=== PATIENT | male | born 1995 | race Caucasian/White ===

== ENCOUNTER → 2016-03-22 | Outpatient (CLI) | payer BC ==
[~2016-03-22] MED LIST: DXY100 PO; FLR1 PO; HYD10 PO; LEVO25TA PO; ONDA4TAB65 PO; TRAZ50TA35 PO
[2016-03-22 17:38] LABS: ALT/SGPT 25 U/L (12-78); BLOOD UREA NITROGEN 31 mg/dl (7-18); BUN/CREATININE RATIO 27.7 (10-20); CALCIUM 8.8 mg/dl (8.5-10.1); CARBON DIOXIDE 24 mmol/L (21-32); CHLORIDE 89 mmol/L (98-107); GLUCOSE 79 mg/dl (70-99); POTASSIUM 4.5 mmol/L (3.5-5.1); SODIUM 126 mmol/L (136-145)
[2016-03-22 17:49] LABS: ALB/GLOB RATIO 1.4 (0.9-2); ALKALINE PHOSPHATASE 70 U/L (45-117); AST/SGOT 23 U/L (15-37)
[2016-03-22 18:07] LABS: HEMATOCRIT 41.3 % (42-52); MEAN CELL VOLUME 80.5 fL (80-100); MEAN CORPUSCULAR HGB CONC 39.7 g/dl (32-36); MEAN PLATELET VOLUME 10.7 fL (7.4-10.4); PLATELET COUNT 239 K/uL (130-400); RED BLOOD COUNT 5.13 M/uL (4.7-6.1); WHITE BLOOD COUNT 5.95 K/uL (4.8-10.8)
[2016-03-22 18:15] LABS: BASO % 0.5 %; BASO ABS # 0.03 K/uL (0-0.2); COMPLETE YES; IG% 0.2 %; LYMPH % 38.8 %; LYMPH ABS # 2.31 K/uL (1.2-3.4); MONO % 10.4 %; NEUT % 47.1 %
== END | disposition home or self-care (01) ==
LOC: C.LAB1850 16:49
PROVIDERS: ATTEND Family Medicine
DX: R06.02 Shortness of breath (principal); I95.1 Orthostatic hypotension

== ENCOUNTER 2016-03-27 11:49 | Inpatient (IN) | payer BC ==
[~2016-03-27] VITALS: Ht 190.5 cm; Wt 70.0 kg
[2016-03-27] MEDS ORDERED: ONDANSETRON INJ 2 MG/ML 2 ML VIAL IV STA (12:11)
[2016-03-27] MEDS ORDERED: SODIUM CHLORIDE 0.9% 1000ML 1,000 ML IV STA ×2 (12:11→12:48)
--- NOTE | 2016-03-27 12:21 | EMERGENCY ROOM VISIT NOTE ---
History Report prepared by Barry: Wan Butts Under the Supervision of: Dr. Saud Cagle M.D. First contact with patient: 12:04 Chief Complaint: NAUSEA Stated Complaint: NAUSEA Nursing Triage Summary: Pt presents for eval of nausea/vomiting, decreased appetite, constipation. Last BM was today. Denies abd pain. Dx on Thurs with hypothyroidism, hyponatremia and orthostatic hypotension. History of Present Illness The patient is a 21 year old male who presents to the Emergency Room with complaints of constant nausea and vomiting starting for the past week. The patient states that she is currently in minimal discomfort. The patient states that earlier this week he went to the doctor, and he was diagnosed with a thyroid issue. He states that he was given medication for it. The patient states that he originally went to the doctor because he was having shortness of breath, dizziness, and he was tired and he had a low appetite. He states that he has additionally been having chills. The patient states that he has been drinking water, but he keeps vomiting it up. The patient states that is worse when standing up or moving. The patient denies using drugs, smoking, and drinking alcohol in the past three weeks. Source of History: patient Onset: week ago Position: other (global) Symptom Intensity: minimal Quality: other (nausea and vomiting) Timing: constant Associated Symptoms: + chills Review of Systems See HPI for pertinent positives & negatives. A total of 10 systems reviewed and were otherwise negative. Past Medical & Surgical Medical Problems: (1) No active medical problems Family History FHx: cancer FHx: heart disease Hypertension Social History Smoking Status: Never Smoker Alcohol Use: occasionally Drug Use: none Housing Status: lives alone Occupation Status: [employer] student Current/Historical Medications Scheduled Levothyroxine Sodium (Synthroid), 25 MCG PO DAILY Allergies Coded Allergies: No Known Allergies (Unverified , 03/27/16) Physical Exam Vital Signs Date Time Temp Pulse Resp B/P Pulse Ox O2 Delivery O2 Flow Rate FiO2 03/27/16 12:50 82 18 101/61 99 03/27/16 12:50 81 03/27/16 12:46 100 Room Air 03/27/16 12:46 100 Room Air 03/27/16 12:30 71 18 94/44 100 Room Air 83 89/59 95 81/62 03/27/16 11:55 36.3 109 18 73/55 99 Room Air Physical Exam GENERAL: Patient is a pale appearing well-nourished male HEAD: Normocephalic atraumatic EYES: Ocular movements intact pupils equal and react to light OROPHARYNX mucous membranes are moist no exudates present no erythema or edema present NECK: Supple no nuchal rigidity CHEST: Good equal expansion LUNGS: Clear and equal to auscultation CARDIAC: Normal S1 and S2 ABDOMEN: Soft nontender no guarding BACK: No CVA tenderness EXTREMITIES: No pain upon palpation normal muscle strength in all groups no clubbing cyanosis or edema NEURO: Patient is following commands is answering questions appropriately. Alert and oriented x3 Cranial Nerves 2-12 grossly intact Medical Decision & Procedures Laboratory Results 03/27/16 12:10 Red Blood Count 5.48, Mean Corpuscular Volume 77.6, Mean Corpuscular Hemoglobin 31.4, Mean Corpuscular Hemoglobin Concent 40.5, Mean Platelet Volume 10.1 03/27/16 12:10 Test 03/27/16 12:10 03/27/16 12:20 03/27/16 12:46 White Blood Count 5.82 K/uL (4.8-10.8) Red Blood Count 5.48 M/uL (4.7-6.1) Hemoglobin 17.2 g/dL (14.0-18.0) Hematocrit 42.5 % (42-52) Mean Corpuscular Volume 77.6 fL (80-100) Mean Corpuscular Hemoglobin 31.4 pg (25-34) Mean Corpuscular Hemoglobin Concent 40.5 g/dl (32-36) Platelet Count 304 K/uL (130-400) Mean Platelet Volume 10.1 fL (7.4-10.4) RDW Standard Deviation 31.2 fL (36.4-46.3) RDW Coefficient of Variation 11.1 % (11.5-14.5) Neutrophils % (Manual) 41.5 % Lymphocytes % (Manual) 22.1 % Variant Lymphocytes % (manual) 25.7 % Monocytes % (Manual) 8.0 % Eosinophils % (Manual) 0.9 % Basophils % (Manual) 0.9 % (0-2) Myelocytes % 0.9 % Neutrophils # (Manual) 2.42 K/uL (1.4-6.5) Total Absolute Neutrophils 2.42 K/uL (1.4-6.5) Lymphocytes # (Manual) 1.29 K/uL (1.2-3.4) Absolute Variant Lymphocytes 1.50 K/uL Total Absolute Lymphocytes 2.78 K/uL (1.2-3.4) Monocytes # (Manual) 0.47 K/uL (0.11-0.59) Eosinophils # (Manual) 0.05 K/uL (0-0.5) Basophils # (Manual) 0.05 K/uL (0-0.2) Myelocytes # 0.05 K/uL (0-0) Red Blood Cell Morphology Unremarkable Anion Gap 14.0 mmol/L (3-11) Est Creatinine Clear Calc Drug Dose 95.5 ml/min Estimated GFR () 98.9 Estimated GFR (Non- 85.3 BUN/Creatinine Ratio 24.7 (10-20) Calcium Level 8.8 mg/dl (8.5-10.1) Total Bilirubin 0.9 mg/dl (0.2-1) Direct Bilirubin 0.3 mg/dl (0-0.2) Aspartate Amino Transf (AST/SGOT) 24 U/L (15-37) Alanine Aminotransferase (ALT/SGPT) 29 U/L (12-78) Alkaline Phosphatase 78 U/L (45-117) Total Protein 7.6 gm/dl (6.4-8.2) Albumin 4.4 gm/dl (3.4-5.0) Thyroid Stimulating Hormone (TSH) 9.910 uIu/ml (0.300-4.500) Lyme Disease IgG Antibody POS (NEG) Monoscreen NEG (NEG) Bedside Glucose 109 mg/dl (70-99) Labs reviewed by ED physician. Medications Administered Medications (Trade) Dose Ordered Sig/Destinee Route Start Time Stop Time Status Last Admin Dose Admin Sodium Chloride (Nss 1000ml) 1,000 ml @ 999 mls/hr Q1H1M STAT IV 03/27/16 12:11 03/27/16 13:11 DC 03/27/16 12:29 999 MLS/HR Ondansetron HCl 4 mg 4 mg NOW STAT IV 03/27/16 12:11 03/27/16 12:13 DC 03/27/16 12:45 4 MG Sodium Chloride (Nss 1000ml) 1,000 ml @ 999 mls/hr Q1H1M STAT IV 03/27/16 12:48 03/27/16 13:48 DC 03/27/16 12:50 999 MLS/HR Hydrocortisone Sodium Succinate (Solu-Cortef IV) 100 mg NOW STAT IV 03/27/16 13:11 03/27/16 13:12 DC 03/27/16 13:11 100 MG Ceftriaxone Sodium (Rocephin Inj) 2 gm NOW STAT IV 03/27/16 13:25 03/27/16 13:26 DC 03/27/16 13:32 2 GM ED Course 1211: Zofran Inj 4mg IV, Sodium Chloride 1000 ml @ 999 mls/hr IV 1248: Sodium Chloride 1000 ml @ 999 mls/hr IV 1300: Past medical records reviewed. The patient was evaluated in room A3. A complete history and physical examination was performed. 1311: Solu- Cortef IV 100mg IV 1325: Rocephin Inj 2mg IV Medical Decision Differential diagnosis: Etiologies such as metabolic, infection, hypo/hyperglycemia, electrolyte abnormalities, cardiac sources, intracerebral event, toxicologic, neurologic, as well as others were entertained. This is a 21-year-old male who presents emergency department complaining of generalized weakness along with orthostatic hypotension. The patient was just diagnosed with hypothyroidism along with hyponatremia and orthostatic hypotension in the primary care physician's office. The patient was started on thyroid medication. He arrives again hypotensive to the emergency department and his sodium has fallen even further from 126-118. His potassium was also high at 5. Based on these findings I'm concerned that the patient may have adrenal insufficiency. For these reasons an ACTH level as well as a cortisol level were drawn prior to the patient receiving Solu-Cortef. The patient was given 2 L of fluid in addition to this. Also the patient also has a positive Lyme test. Based on this finding the patient was started on 2 g of Rocephin. I did discuss the case with the hospitalist service who agreed to admit the patient. Patient was in agreement with the treatment plan. Impression Primary Impression: Hyponatremia Additional Impression: Hypotension Critical Care I have personally spent greater than 30 minutes of critical care time in the direct management of this patient. This includes bedside care, interpretation of diagnostic studies, and testing, discussion with consultants, patient, and family members, and other required patient management activities. This 30 minutes is in excess of all separately billable procedures. Scribe Attestation The scribe's documentation has been prepared under my direction and personally reviewed by me in its entirety. I confirm that the note above accurately reflects all work, treatment, procedures, and medical decision making performed by me. Departure Information Dispostion Still a Patient Referrals No Doctor, Assigned (PCP) Patient Instructions My [facility] Problem Qualifiers Additional Impression: Hypotension Hypotension type: orthostatic hypotension Qualified Codes: I95.1 - Orthostatic hypotension
[2016-03-27] MEDS ORDERED: LEVO25TA PO (12:23)
[2016-03-27 12:58] LABS: HEMATOCRIT 42.5 % (42-52); MEAN CELL VOLUME 77.6 fL (80-100); MEAN CORPUSCULAR HEMOGLOBIN 31.4 pg (25-34); MEAN CORPUSCULAR HGB CONC 40.5 g/dl (32-36); MEAN PLATELET VOLUME 10.1 fL (7.4-10.4); PLATELET COUNT 304 K/uL (130-400); RED BLOOD COUNT 5.48 M/uL (4.7-6.1); WHITE BLOOD COUNT 5.82 K/uL (4.8-10.8)
[2016-03-27 13:00] LABS: BASO ABS # 0.05 K/uL (0-0.2); BASOPHIL % 0.9 % (0-2); BUN/CREATININE RATIO 24.7 (10-20); CALCIUM 8.8 mg/dl (8.5-10.1); COMPLETE YES; CREATININE 1.2 mg/dl (0.60-1.40); EOSINOPHIL % 0.9 %; LYMPH ABS # 1.29 K/uL (1.2-3.4); LYMPHOCYTE % 22.1 %; MYELOCYTE % 0.9 %; NEUTROPHILS % 41.5 %; THYROID STIMULATING HORMONE 9.91 uIu/ml (0.300-4.500); VARIANT LYMPHOCYTE % 25.7 %
[2016-03-27] MEDS ORDERED: HYDROCORTISONE SOD SUCCINATE 100 MG/2 ML VIAL IV STA (13:11)
[2016-03-27 13:19] LABS: LYME DISEASE AB IGG POS (NEG); LYME DISEASE AB IGM NEG (NEG)
[2016-03-27] MEDS ORDERED: CEFTRIAXONE SOD INJ 1 GM ADDVIAL IV STA (13:25)
[2016-03-27 13:32] VITALS: O2SAT 99; Ht 190.5 cm; Wt 70.0 kg
[2016-03-27] MEDS ORDERED: NITROGLYCERIN 0.4 MG SL PER TAB CHARGE SL PRN (14:00)
[2016-03-27] MEDS ORDERED: POLYETHYLENE (MIRALAX) 17 GM PACK PO PRN (14:00)
[2016-03-27] MEDS ORDERED: ACETAMINOPHEN 325 MG TAB PO PRN (14:00)
[2016-03-27] MEDS ORDERED: ONDANSETRON INJ 2 MG/ML 2 ML VIAL IV PRN (14:00)
[2016-03-27] MEDS ORDERED: ALUMINUM/MAGNESIUM/SIMETH (MAALOX MAX) 30 ML UDC PO PRN (14:00)
--- NOTE | 2016-03-27 14:37 | History and Physical ---
History & Physical Date & Time of Service: Mar 27, 2016 at 14:09 Chief Complaint: Nausea Primary Care Physician: No Doctor, Assigned History of Present Illness Source: patient Patient is a pleasant 21 y/o male, with no significant PMHX, who presented to the ED because of nausea/vomiting. Per patient, symptoms have been ongoing for roughly 1 week now. Over the last 24 hours, symptoms have worsened. He is unable to keep any foods/liquids down. He was seen by his PCP last week and started on Synthroid 25 mcg for hypothyroidism. He just started the medication on 03/27 but states he vomited after each time he took it. Patient also complains of fatigue, lightheadedness/dizziness, muscle aches, and constipation. Patient does report recent exposure to ticks- no rashes. Patient was recently seen in the ED on 12/23 for a sore throat- he was treated with Prednisone 50 mg x5 days and Azithromycin. He admits to a cold ~1 week ago, but symptoms have improved. Patient denies any fever, chills, sweats, vision changes , CP, palpitations, edema, SOB, wheezing, cough, abdominal pain, diarrhea, urinary symptoms, melena, numbness/tingling, muscle/joint pain, anxiety/ depression, active bleeding, or new skin discoloration/changes. Family History FHx: cancer FHx: heart disease Hypertension Social History Smoking Status: Never Smoker Alcohol Use: socially Drug Use: none Occupational Status: [employer] student Allergies Coded Allergies: No Known Allergies (Unverified , 03/27/16) Home Medications Scheduled Levothyroxine Sodium (Synthroid), 25 MCG PO DAILY Physical Exam Vital Signs Date Time Temp Pulse Resp B/P Pulse Ox O2 Delivery O2 Flow Rate FiO2 03/27/16 13:52 92 16 99/62 97 Room Air 03/27/16 12:50 82 18 101/61 99 03/27/16 12:50 81 03/27/16 12:46 100 Room Air 03/27/16 12:46 100 Room Air 03/27/16 12:30 71 18 94/44 100 Room Air 83 89/59 95 81/62 03/27/16 11:55 36.3 109 18 73/55 99 Room Air General Appearance: no apparent distress Head: normocephalic, atraumatic Eyes: normal inspection, PERRL ENT: hearing grossly normal Neck: supple Respiratory/Chest: lungs clear, no respiratory distress, no accessory muscle use Cardiovascular: regular rate, rhythm, no edema, normal peripheral pulses Abdomen/GI: normal bowel sounds, non tender, soft Back: normal inspection Extremities/Musculoskelatal: no calf tenderness, no pedal edema Neurologic/Psych: alert, normal mood/affect, oriented x 3 Skin: normal color, warm/dry, no rash Diagnostics Laboratory Results Results Past 24 Hours Test 03/27/16 12:10 03/27/16 12:20 03/27/16 12:46 Range/Units White Blood Count 5.82 4.8-10.8 K/uL Red Blood Count 5.48 4.7-6.1 M/uL Hemoglobin 17.2 14.0-18.0 g/dL Hematocrit 42.5 42-52 % Mean Corpuscular Volume 77.6 80-100 fL Mean Corpuscular Hemoglobin 31.4 25-34 pg Mean Corpuscular Hemoglobin Concent 40.5 32-36 g/dl Platelet Count 304 130-400 K/uL Mean Platelet Volume 10.1 7.4-10.4 fL RDW Standard Deviation 31.2 36.4-46.3 fL RDW Coefficient of Variation 11.1 11.5-14.5 % Neutrophils % (Manual) 41.5 % Lymphocytes % (Manual) 22.1 % Variant Lymphocytes % (manual) 25.7 % Monocytes % (Manual) 8.0 % Eosinophils % (Manual) 0.9 % Basophils % (Manual) 0.9 0-2 % Myelocytes % 0.9 % Neutrophils # (Manual) 2.42 1.4-6.5 K/uL Total Absolute Neutrophils 2.42 1.4-6.5 K/uL Lymphocytes # (Manual) 1.29 1.2-3.4 K/uL Absolute Variant Lymphocytes 1.50 K/uL Total Absolute Lymphocytes 2.78 1.2-3.4 K/uL Monocytes # (Manual) 0.47 0.11-0.59 K/uL Eosinophils # (Manual) 0.05 0-0.5 K/uL Basophils # (Manual) 0.05 0-0.2 K/uL Myelocytes # 0.05 0-0 K/uL Red Blood Cell Morphology Unremarkable Sodium Level 118 136-145 mmol/L Potassium Level 5.0 3.5-5.1 mmol/L Chloride Level 81 98-107 mmol/L Carbon Dioxide Level 23 21-32 mmol/L Anion Gap 14.0 3-11 mmol/L Blood Urea Nitrogen 30 7-18 mg/dl Creatinine 1.20 0.60-1.40 mg/dl Est Creatinine Clear Calc Drug Dose 95.5 ml/min Estimated GFR () 98.9 Estimated GFR (Non- 85.3 BUN/Creatinine Ratio 24.7 10-20 Random Glucose 100 70-99 mg/dl Calcium Level 8.8 8.5-10.1 mg/dl Total Bilirubin 0.9 0.2-1 mg/dl Direct Bilirubin 0.3 0-0.2 mg/dl Aspartate Amino Transf (AST/SGOT) 24 15-37 U/L Alanine Aminotransferase (ALT/SGPT) 29 12-78 U/L Alkaline Phosphatase 78 45-117 U/L Total Protein 7.6 6.4-8.2 gm/dl Albumin 4.4 3.4-5.0 gm/dl Thyroid Stimulating Hormone (TSH) 9.910 0.300-4.500 uIu/ml Lyme Disease IgG Antibody POS NEG Lyme Disease IgM Antibody NEG NEG Monoscreen NEG NEG Bedside Glucose 109 70-99 mg/dl Impression Assessment and Plan 21 y/o male, with no significant PMHx, who presented to the ED because of nausea /vomiting. Hypotension, 73/55 at arrival in ED: -Admit tele -?Adrenal insufficiency --IV 100 mg Solu Cortef in ED --Pending cortisol labs. Consider 24 urine cortisol and Endocrinology consult pending labs. --Check ha1c -?Dehydration --IV NSS bolus x2 in ED --Hydrate with IV NSS @ 125 ml/hr Hypothyroidism, TSH of 9.910: -Pending T4, free T3 -IV Synthroid 25 mcg due to vomiting Hyponatremia w/ sodium of 118- ?secondary to dehydration from nausea/vomiting, ? adrenal insufficiency: -Treat with IV NSS @ 125 ml/hr -Improved with IV Solu Cortef -Recheck PRP at 1800 -Check urine sodium and urine osmolality Possible Lyme Disease with recent tick exposure, +IgG Ab: -Pending western blot/bands -Start IV Rocephin 2 gm (did not start Doxycycline PO as patient is not tolerating oral intake at admission) Nausea/Vomiting: -IVF as above -Check mag level -IV Zofran PRN -Follow PRP and CBC GI Prophylaxis: -Maalox PRN -IV Zofran PRN -Colace and/or Milk of Mag PRN DVT prophylaxis: -Early ambulation -MYLENE and SCDs Code Status: -LEVEL I, FULL I agree with PA assessment and plan and have personally seen and examined pt myself. Pt presented with nausea/vomiting, malaise x 1 week Agree with PA ROS and PE findings GEN NAD alert and oriented x 3 ABD soft NT ND Noted hyponatremia, hypotension ?adrenal insuff, pending cortisol, renin, aldosterone ?lymes causing hypothyroidism, awaiting further band serology cont rocephin at this time cont IVF and hydrocortisone May require endocrine consultation pending lab workup Level of Care Telemetry Resuscitation Status FULL RESUSCITATION VTE Prophylaxis VTE Risk Assessment Done? Y/N: Yes Risk Level: Low Given or contraindicated: T.E.D. Stockings, SCD's
[2016-03-27 15:50] VITALS: BP_SYST 102; BP_SYST 97; BP_DIAS 66; BP_DIAS 70; PULSE 85; PULSE 86; TEMP 36.5; O2SAT 100
[2016-03-27 15:51] VITALS: BP 101/65; PULSE 90
[2016-03-27] MEDS: SODIUM CHLORIDE 0.9% 1000ML 1,000 ML IV SCH ×2 (16:07→23:51)
[2016-03-27 17:27] LABS: MANUAL MICROSCOPIC REQUIRED? NO; REVIEW REQ? NO; URINE APPEARANCE CLEAR (CLEAR); URINE BILIRUBIN NEG (NEG); URINE COLOR YELLOW; URINE NITRITE NEG (NEG); URINE PH 6.5 (4.5-7.5); URINE SPECIFIC GRAVITY 1.007 (1.000-1.030); UROBILINOGEN NEG (NEG)
[2016-03-27 18:44] LABS: BUN/CREATININE RATIO 21.8 (10-20); CREATININE 1.1 mg/dl (0.60-1.40); POTASSIUM 4.6 mmol/L (3.5-5.1)
[2016-03-27 19:44] VITALS: BP 103/63; PULSE 85; TEMP 36.9; O2SAT 100
[2016-03-27] MEDS: ZOLPIDEM TARTRATE 5 MG TAB PO PRN (22:22)
[2016-03-27 23:01] LABS: CALCIUM 8.4 mg/dl (8.5-10.1); CREATININE 1.1 mg/dl (0.60-1.40); MAGNESIUM 2.1 mg/dl (1.8-2.4)
[2016-03-27 23:04] LABS: POTASSIUM 5.4 mmol/L (3.5-5.1)
[2016-03-28] VITALS (13 sets, daily range): BP systolic 83–108; BP diastolic 54–66; PULSE 73–131; TEMP 36.7–37; O2SAT 96–100
[2016-03-28 07:35] LABS: BUN/CREATININE RATIO 23.7 (10-20); CALCIUM 8.1 mg/dl (8.5-10.1); CREATININE 0.98 mg/dl (0.60-1.40); POTASSIUM 4.5 mmol/L (3.5-5.1)
[2016-03-28] MEDS: SODIUM CHLORIDE 0.9% 1000ML 1,000 ML IV SCH ×3 (07:39→21:01)
[2016-03-28 07:42] LABS: ESTIMATED AVERAGE GLUCOSE 88 mg/dl; HA1C FLAG Normal (Normal)
[2016-03-28 08:14] LABS: BASO % 0.4 %; BASO ABS # 0.02 K/uL (0-0.2); BASO ABS # 0.04 K/uL (0-0.2); BASOPHIL % 0.9 % (0-2); COMPLETE YES; EOSINOPHIL % 1.8 %; HEMATOCRIT 35.8 % (42-52); IG% 0.2 %; LYMPH % 34.3 %; LYMPH ABS # 1.66 K/uL (1.2-3.4); LYMPH ABS # 1.78 K/uL (1.2-3.4); LYMPHOCYTE % 36.8 %; MEAN CELL VOLUME 79.9 fL (80-100); MEAN CORPUSCULAR HEMOGLOBIN 30.6 pg (25-34); MEAN CORPUSCULAR HGB CONC 38.3 g/dl (32-36); MEAN PLATELET VOLUME 10.6 fL (7.4-10.4); NEUT % 50.1 %; NEUTROPHILS % 52.6 %; PLATELET COUNT 235 K/uL (130-400); RED BLOOD COUNT 4.48 M/uL (4.7-6.1); WHITE BLOOD COUNT 4.84 K/uL (4.8-10.8)
[2016-03-28] MEDS ORDERED: SODIUM CHLORIDE 0.9% 1000ML 1,000 ML IV ONE (08:45)
[2016-03-28] MEDS ORDERED: LEVOTHYROXINE SODIUM INJ 25 MCG in SYRINGE 0 ML IV SCH (09:00)
[2016-03-28 09:42] LABS: PROLACTIN 18.28 ng/mL
[2016-03-28] MEDS: DEXAMETHASONE INJ 6 MG in SYRINGE 0 ML IV SCH ×3 (10:27→21:47)
[2016-03-28] MEDS ORDERED: FLUDROCORTISONE ACETATE 0.1 MG TAB PO ONE (13:30)
[2016-03-28] MEDS: CEFTRIAXONE SOD INJ 2,000 MG in DEXTROSE 5% 50ML 50 ML IV SCH (13:32)
--- NOTE | 2016-03-28 13:58 | Hospitalist Progress Note ---
Hospitalist Progress Note Date of Service Mar 28, 2016. (Sarah Yost ., ANTONIOC) Subjective Pt evaluation today including: conversation w/ patient, physical exam, chart review, lab review, review of inpatient medication list Voiding: no voiding problems, no incontinence Patient states he is feeling well. Tolerating diet well, with no nausea or vomiting. +lightheadedness and dizziness with rapid changes in position. Patient denies any fever, chills, sweats, vision changes, CP, palpitations, edema, SOB, wheezing, cough, abdominal pain, nausea, vomiting, diarrhea, urinary symptoms, melena, numbness/tingling, weakness, muscle/joint pain, anxiety/depression, active bleeding, or new skin discoloration/changes. (Sarah Yost ., ANTONIOC) Medications Current Inpatient Medications Medications (Trade) Dose Ordered Sig/Destinee Route Start Time Stop Time Status Last Admin Dose Admin Sodium Chloride (Nss 1000ml) 1,000 ml @ 200 mls/hr Q5H IV 03/27/16 16:00 04/26/16 15:59 03/28/16 13:32 200 MLS/HR Acetaminophen (Tylenol Tab) 650 mg Q4H PRN PO 03/27/16 14:00 04/26/16 13:59 Al Hydrox/Mg Hydrox/Simethicone (Maalox Max Susp) 15 ml Q4H PRN PO 03/27/16 14:00 04/26/16 13:59 Magnesium Hydroxide (Milk Of Magnesia Susp) 30 ml Q12H PRN PO 03/27/16 14:00 04/26/16 13:59 Ondansetron HCl (Zofran Inj) 4 mg Q6H PRN IV 03/27/16 14:00 04/26/16 13:59 Nitroglycerin (Nitrostat Tab) 0.4 mg UD PRN SL 03/27/16 14:00 04/26/16 13:59 Polyethylene 17 gm 17 gm DAILY PRN PO 03/27/16 14:00 04/26/16 13:59 Levothyroxine Sodium 25 mcg/ Syringe 1.25 ml @ 2 mls/min DAILY@09 IV 03/28/16 09:00 04/27/16 08:59 03/28/16 09:30 2 MLS/MIN Ceftriaxone Sodium/Dextrose (Rocephin Inj/D5 50ml) 70 ml @ 100 mls/hr Q24H IV 03/28/16 14:00 04/06/16 13:59 03/28/16 13:32 100 MLS/HR Zolpidem Tartrate 5 mg 5 mg HS PRN PO 03/27/16 22:15 04/26/16 22:14 03/27/16 22:22 5 MG Dexamethasone Sodium Phosphate/ Syringe (Decadron Inj/ Syringe) 1.5 ml @ 1 mls/min Q6H IV 03/28/16 10:00 04/27/16 09:59 03/28/16 10:27 1 MLS/MIN Trazodone HCl (Desyrel Tab) 25 mg HS PO 03/28/16 21:00 04/27/16 20:59 Fludrocortisone Acetate 0.1 mg 0.1 mg QAM PO 03/29/16 09:00 04/28/16 08:59 Cosyntropin/ Syringe (Cortrosyn 1MCG/ 0.5ML Dose/ Syringe) 0.5 ml @ 1 mls/min TODAY@0800 IV 03/29/16 08:00 03/29/16 08:01 (Sarah Yost, JAZMÍN) Objective Vital Signs Date Time Temp Pulse Resp B/P Pulse Ox O2 Delivery O2 Flow Rate FiO2 03/28/16 12:00 97 Room Air 03/28/16 11:33 36.9 85 22 99/64 100 Room Air 03/28/16 08:00 99 Room Air 03/28/16 07:59 36.9 73 20 102/66 99 Room Air 92 99/66 94 85/58 03/28/16 04:00 Room Air 03/28/16 03:32 36.8 82 16 101/64 99 Room Air 03/28/16 00:20 131 86/61 03/28/16 00:16 103 96/66 03/28/16 00:13 36.8 85 15 100/62 98 Room Air 03/27/16 23:59 Room Air 03/27/16 20:00 Room Air 03/27/16 19:44 36.9 85 18 103/63 100 Room Air 03/27/16 15:51 90 101/65 03/27/16 15:50 36.5 85 20 97/66 100 Room Air 03/27/16 15:50 86 102/70 03/27/16 15:32 81 18 106/56 99 03/27/16 13:52 92 16 99/62 97 Room Air (Sarah Yost PA-C) Physical Exam General Appearance: no apparent distress, + thin Eyes: normal inspection, PERRL ENT: hearing grossly normal Neck: supple Respiratory/Chest: lungs clear, no respiratory distress, no accessory muscle use Cardiovascular: regular rate, rhythm, no edema Abdomen: normal bowel sounds, non tender, soft Extremities: non-tender, no pedal edema, no calf tenderness Neurologic/Psychiatric: alert, normal mood/affect, oriented x 3 Skin: normal color, warm/dry, no rash (Sarah Yost, ANTONIOC) Laboratory Results Last 24 Hours Test 03/27/16 17:15 03/27/16 18:15 03/27/16 22:30 03/28/16 06:42 Urine Color YELLOW Urine Appearance CLEAR Urine pH 6.5 Urine Specific Mustang 1.007 Urine Protein NEG Urine Glucose (UA) NEG Urine Ketones TRACE Urine Occult Blood NEG Urine Nitrite NEG Urine Bilirubin NEG Urine Urobilinogen NEG Urine Leukocyte Esterase NEG Urine Osmolality 292 mOms/kg Urine Random Sodium 64 mEq/L Sodium Level 122 mmol/L 126 mmol/L 128 mmol/L Potassium Level 4.6 mmol/L 5.4 mmol/L 4.5 mmol/L Chloride Level 88 mmol/L 93 mmol/L 96 mmol/L Carbon Dioxide Level 22 mmol/L 21 mmol/L 22 mmol/L Anion Gap 12.0 mmol/L 12.0 mmol/L 10.0 mmol/L Blood Urea Nitrogen 24 mg/dl 23 mg/dl 23 mg/dl Creatinine 1.10 mg/dl 1.10 mg/dl 0.98 mg/dl Est Creatinine Clear Calc Drug Dose 104.1 ml/min 104.1 ml/min 113.6 ml/min Estimated GFR () 109.9 109.9 126.3 Estimated GFR (Non- 94.8 94.8 109.0 BUN/Creatinine Ratio 21.8 21.0 23.7 Random Glucose 103 mg/dl 95 mg/dl 92 mg/dl Calcium Level 8.0 mg/dl 8.4 mg/dl 8.1 mg/dl Osmolality 262 mOsm/kg Magnesium Level 2.1 mg/dl Free Thyroxine 1.25 ng/dl White Blood Count 4.84 K/uL Red Blood Count 4.48 M/uL Hemoglobin 13.7 g/dL Hematocrit 35.8 % Mean Corpuscular Volume 79.9 fL Mean Corpuscular Hemoglobin 30.6 pg Mean Corpuscular Hemoglobin Concent 38.3 g/dl Platelet Count 235 K/uL Mean Platelet Volume 10.6 fL Neutrophils (%) (Auto) 50.1 % Lymphocytes (%) (Auto) 34.3 % Monocytes (%) (Auto) 14.0 % Eosinophils (%) (Auto) 1.0 % Basophils (%) (Auto) 0.4 % Neutrophils # (Auto) 2.42 K/uL Lymphocytes # (Auto) 1.66 K/uL Monocytes # (Auto) 0.68 K/uL Eosinophils # (Auto) 0.05 K/uL Basophils # (Auto) 0.02 K/uL RDW Standard Deviation 33.6 fL RDW Coefficient of Variation 11.5 % Immature Granulocyte % (Auto) 0.2 % Immature Granulocyte # (Auto) 0.01 K/uL Neutrophils % (Manual) 52.6 % Lymphocytes % (Manual) 36.8 % Monocytes % (Manual) 7.9 % Eosinophils % (Manual) 1.8 % Basophils % (Manual) 0.9 % Neutrophils # (Manual) 2.55 K/uL Total Absolute Neutrophils 2.55 K/uL Lymphocytes # (Manual) 1.78 K/uL Total Absolute Lymphocytes 1.78 K/uL Monocytes # (Manual) 0.38 K/uL Eosinophils # (Manual) 0.09 K/uL Basophils # (Manual) 0.04 K/uL Test 03/28/16 08:35 Follicle Stimulating Hormone 1.37 IU/L Luteinizing Hormone 5.74 IU/L Prolactin 18.28 ng/mL (Sarah Yost, ANTONIOC) Assessment and Plan 21 y/o male, with no significant PMHx, who presented to the ED because of nausea /vomiting. -?Adrenal insufficiency: -Admit tele -IV 100 mg Solu Cortef in ED on 03/27 -ha1c of 4.7 -Checked FSH, LH, and prolactin levels, WNL -Start Dexamethasone 6 mg IV q6 hrs and Fludrocortisone 0.1 mg PO daily on 03/28 -Cortrosyn stimulation test in the AM -Check AM testosterone level- patient is balding and difficulty with erections ?Anemia w/ low MCV: -Check iron panel Hypothyroidism, TSH of 9.910: -free T4, thyroxine, and free T3 all WNL -IV Synthroid 25 mcg due to vomiting Hyponatremia w/ sodium of 118 on 03/27, likely secondary to adrenal insufficiency : -Treat with IV NSS @ 125 ml/hr --IV NSS bolus x1 on 03/28 -Urine sodium and urine osmolality- low -Follow PRP Possible Lyme Disease with recent tick exposure, +IgG Ab: -Pending western blot/bands -Start IV Rocephin 2 gm (did not start Doxycycline PO as patient is not tolerating oral intake at admission) (first dose on 03/27) Nausea/Vomiting, improved: -IVF as above -Check mag level- 2.1 -IV Zofran PRN -Follow PRP and CBC Insomnia: -Trazodone 25-50 mg PO HS PRN GI Prophylaxis: -Maalox PRN -IV Zofran PRN -Colace and/or Milk of Mag PRN DVT prophylaxis: -Early ambulation -MYLENE and SCDs Code Status: -LEVEL I, FULL (Sarah Yost ., PA-C) Attending Attestation: Pt seen/examined, chart reviewed, and care plan d/w REUBEN Yost. I agree w/ the khan components of her documentation. Pt feels much better today - no further nausea/emesis. Dizziness is better. Eating well. Reports several weeks of salt cravings and dizziness. Denies weight loss. 2 first degree relatives have celiac, and mother has hyperthyroidism. Vitals - BPs slowly improving, orthostasis improving, HRs slowly improving gen - NAD, thin skin - tanned appearance mouth - MMM neck - no goiter heart - RRR, s1, s2 lungs - CTA b/l abd - soft, NT, ND, BS+ ext - no edema labs - cortisol 4 ACTH pending LH, FSH, prolactin normal Free T4 normal microcytosis on cbc A/P: 1. suspected adrenal insufficiency with resulting shock - latter resolved. Labs, clinical picture most c/w primary adrenal insuff. Central is possible but less likely. plan - NPO after MN for cosyntropin stim test in AM add florinef to decadron 2. 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 hypothyroidism - on synthroid; convert to PO in am 5. insomnia - trazodone 6. hyponatremia - hypotonic hypovolemic - improved; repeat BMP am 7. acute kidney injury - resolved Tra Marcos MD (Tra Marcos MD)
[2016-03-28] MEDS: TRAZODONE HCL 50 MG TAB PO SCH ×2 (21:03→21:46)
[2016-03-28] MEDS: ZOLPIDEM TARTRATE 5 MG TAB PO PRN (23:28)
[2016-03-29] VITALS (12 sets, daily range): BP systolic 89–120; BP diastolic 49–79; PULSE 78–100; TEMP 36.4–37.2; O2SAT 98–100
[2016-03-29] MEDS: SODIUM CHLORIDE 0.9% 1000ML 1,000 ML IV SCH ×4 (01:40→21:48)
[2016-03-29] MEDS: DEXAMETHASONE INJ 6 MG in SYRINGE 0 ML IV SCH ×3 (04:14→21:49)
[2016-03-29] MEDS: LEVOTHYROXINE 25 MCG TAB PO SCH ×2 (06:25→09:40)
[2016-03-29 07:01] LABS: COMPLETE YES; HEMATOCRIT 31.6 % (42-52); LYMPH % 17.9 %; LYMPH ABS # 0.67 K/uL (1.2-3.4); MEAN CELL VOLUME 81.7 fL (80-100); MEAN CORPUSCULAR HEMOGLOBIN 30.7 pg (25-34); MEAN CORPUSCULAR HGB CONC 37.7 g/dl (32-36); MEAN PLATELET VOLUME 10.4 fL (7.4-10.4); MONO % 2.9 %; NEUT % 79.2 %; PLATELET COUNT 185 K/uL (130-400); RED BLOOD COUNT 3.87 M/uL (4.7-6.1); WHITE BLOOD COUNT 3.75 K/uL (4.8-10.8)
[2016-03-29 07:38] LABS: BUN/CREATININE RATIO 19.3 (10-20); CREATININE 0.86 mg/dl (0.60-1.40); POTASSIUM 4.2 mmol/L (3.5-5.1)
[2016-03-29 07:48] LABS: FERRITIN 370.4 ng/ml (8.0-388.0)
[2016-03-29] MEDS ORDERED: COSYNTROPIN INJ 1 MCG in SYRINGE 0 ML IV SCH (08:00)
[2016-03-29] MEDS ORDERED: COSYNTROPIN IV ONE (08:00)
[2016-03-29] MEDS: FLUDROCORTISONE ACETATE 0.1 MG TAB PO SCH (09:40)
[2016-03-29] MEDS: CEFTRIAXONE SOD INJ 2,000 MG in DEXTROSE 5% 50ML 50 ML IV SCH (14:20)
[2016-03-29] MEDS: MAGNESIUM HYDROXIDE SUSP 30 ML UDC PO PRN (15:42)
[2016-03-29 17:59] LABS: EBV EARLY ANTIGEN AB <0.91 INDEX; EPSTEIN BARR VIR CAPSID IGG <0.91 INDEX
[2016-03-29] MEDS: TRAZODONE HCL 50 MG TAB PO SCH ×2 (22:11→23:55)
[2016-03-29] MEDS ORDERED: TRAZODONE HCL 50 MG TAB PO PRN (23:45)
[2016-03-30 01:33] LABS: 18KDIGG BAND REACTIVE (NONREACTIVE); 23KDIGG BAND REACTIVE (NONREACTIVE); 23KDIGM BAND REACTIVE (NONREACTIVE); 28KDIGG BAND NONREACTIVE (NONREACTIVE); 30KDIGG BAND NONREACTIVE (NONREACTIVE); 39KDIGG BAND REACTIVE (NONREACTIVE); 39KDIGM BAND NONREACTIVE (NONREACTIVE); 41KDIGG BAND REACTIVE (NONREACTIVE); 41KDIGM BAND REACTIVE (NONREACTIVE); 45KDIGG BAND REACTIVE (NONREACTIVE); 58KDIGG BAND REACTIVE (NONREACTIVE); 66KDIGG BAND REACTIVE (NONREACTIVE); 93KDIGG BAND REACTIVE (NONREACTIVE)
[2016-03-30] MEDS: MAGNESIUM HYDROXIDE SUSP 30 ML UDC PO PRN (05:55)
[2016-03-30] MEDS: LEVOTHYROXINE 25 MCG TAB PO SCH (05:55)
[2016-03-30 07:20] VITALS: BP 91/51; PULSE 91; TEMP 36.7; O2SAT 97
--- NOTE | 2016-03-30 07:26 | Progress Note ---
Subjective Date of Service: late entry for visit on Mar 29, 2016. Subjective Pt evaluation today including: conversation w/ patient, conversation w/ family (parents at bedside), physical exam, chart review, lab review, review of studies , review of inpatient medication list Pain: none PO Intake: improved/normal Voiding: no voiding problems tele stable overnight feels very good no dizziness, lightheadedness, weakness, nausea, emesis no rashes, fever, chills Problem List Medical Problems: (1) Hyponatremia Status: Acute (2) Hypotension Status: Acute (3) Pharyngitis, acute Status: Acute Review of Systems Constitutional: No chills, No fever Respiratory: No dyspnea on exertion, No shortness of breath Cardiac: No chest pain Abdomen: No diarrhea, No nausea, No pain, No vomiting Objective Vital Signs Date Time Temp Pulse Resp B/P Pulse Ox O2 Delivery O2 Flow Rate FiO2 03/29/16 23:47 Room Air 03/29/16 23:31 106/67 03/29/16 23:21 36.7 82 16 89/49 98 Room Air 03/29/16 19:50 36.4 82 18 120/79 100 Room Air 03/29/16 19:50 Room Air 03/29/16 19:49 36.9 99 16 100 03/29/16 16:00 100 Room Air 03/29/16 15:33 36.9 99 16 100/54 100 Room Air 03/29/16 12:18 Room Air 03/29/16 11:43 37.2 100 16 106/62 100 Room Air 03/29/16 08:20 Room Air 03/29/16 07:50 36.7 78 16 100/63 100 Room Air Physical Exam General Appearance: no apparent distress ENT: pharynx normal Neck: no JVD Respiratory/Chest: lungs clear, no respiratory distress, no accessory muscle use Cardiovascular: no gallop, no murmur, + tachycardia Abdomen: normal bowel sounds, non tender, soft, no organomegaly Extremities: no pedal edema Neurologic/Psychiatric: alert, oriented x 3 Skin: + pertinent finding (hyperpigmented/tanned including his nipples ) Laboratory Results Last 24 Hours Test 03/29/16 07:58 Cortisol Response to Stimulation Cortisol Baseline Assessment and Plan Attending Attestation: Pt seen/examined, chart reviewed, and care plan d/w REUBEN Yost. I agree w/ the khan components of her documentation. 21yo male with: 1. adrenal insufficiency with resulting shock - latter resolved. Cosyntropin stim test grossly abnormal. Labs, clinical picture, exam findings, etc most c/w primary adrenal insufficiency / [place]'s disease. Central is possible but less likely. plan - Wean decadron Cont IVF 1 more day Push PO fluids as well Cont florinef Await ACTH level; if [place]'s should be very high. Had lengthy discussion with parents regarding dx, testing, need for endo after discharge, meds, etc. All questions answered. 2. severe dehydration 2nd to #1 - resolved. Cut fluid rate to 75cc/hr. 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 Either way I have recommended endo f/u. 4. hypothyroidism - on synthroid. His Free T4 was preserved making central causes highly unlikely. With treatment of his adrenal insufficiency will he require replacement long- term? 5. insomnia - trazodone 6. hyponatremia - hypotonic hypovolemic - resolved. 7. acute kidney injury - resolved 8. incomplete RBBB - significance unclear, repeat EKG in am. If lyme's is + the iRBBB could be due to such. 9. question of lyme's disease - screen was +, awaiting western blot results. On rocephin. See #8 above. 10. low MCV on cbc - checked iron studies showing very high Iron level and VERY high iron saturation. Could he have hemochromatosis leading to adrenal insufficiency??? This needs follow-up. I discussed these results with parents as well. Continued [facility] stay due to: multiple IV medications needed Discharge planning: home
--- NOTE | 2016-03-30 10:17 | Progress Note ---
Progress Note ID Consult Dictated #[id number] A/P: 1. Lyme Disease -Continue ctx for now, when n/v resolved and able to take po, can change to doxy 100mg po bid with food to complete 28 day couse -Unsure if RBBB is related but can continue with po abx to complete course upon d/c -Preventative measures for re-infection discussed -No contraindication to d/c from ID standpoint, thank you
[2016-03-30] MEDS: DEXAMETHASONE INJ 6 MG in SYRINGE 0 ML IV SCH (10:32)
[2016-03-30] MEDS: SODIUM CHLORIDE 0.9% 1000ML 1,000 ML IV SCH (10:32)
[2016-03-30] MEDS: FLUDROCORTISONE ACETATE 0.1 MG TAB PO SCH (10:33)
--- NOTE | 2016-03-30 11:27 | INFECT. DISEASE CONSULTATION ---
DATE OF CONSULTATION: 03/30/2016 REQUESTING PHYSICIAN: Dr. Butt. CONSULTATION FOLLOWS: This is a 21-year-old gentleman who was admitted from home after he had persistent nausea and vomiting. 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 He has been having intermittent symptoms for 1 week prior to admission. Since admission to the hospital, he has been feeling better. He was recently evaluated by his primary care physician and was found to be hypothyroid and placed on Synthroid at 25 mcg. He began this on March 27, but continued to have worsening nausea and vomiting and subsequently was admitted to the hospital. In the hospital, he was found to have a TSH of 9.9. A mono screen was negative. He does have a history of multiple tick bites over the summer and fall. He denies any rashes, arthralgias, myalgias, fevers, chills or headaches associated with this. He is originally from [place], [place]. He does have 2 cats in the house. He did have a dog that recently . Because of this association with frequent tick bites, a Lyme titer was obtained. 2/3 IgM bands were positive and 8/10 IgG bands were positive. He has been on ceftriaxone since admission to the hospital and is tolerating this well. He currently denies any nausea, vomiting, diarrhea or abdominal pain. In fact, he states he is constipated. He denies any chest pain, cough, shortness of breath. He denies any joint pain or swelling. He denies any rash. He denies any fevers or chills. He has no headache, neck pain or visual complaints. He is tolerating Rocephin well. All remaining review of systems are reviewed and are negative except for as noted above. FAMILY HISTORY: Noncontributory. PAST MEDICAL HISTORY: Significant for hypothyroidism. SURGICAL HISTORY: There is no surgical history. SOCIAL HISTORY: Negative for tobacco use or drug use. He drinks occasionally. He is a student at [employer] and will be graduating this semester. ALLERGIES: He has no known drug allergies. CURRENT MEDICATIONS: Include Rocephin, trazodone, dexamethasone, Florinef, Synthroid, Tylenol, Maalox, Milk of Magnesia, Zofran and MiraLax. PHYSICAL EXAMINATION: VITAL SIGNS: He is afebrile, pulse 91, respiratory rate 16, blood pressure 91/51, oxygen saturation is 97% to 100% on room air. GENERAL: He is awake, alert and oriented x3. He is in no acute distress. HEENT: Mucous membranes are moist. Extraocular muscles are intact. HEART: Regular. LUNGS: Clear. ABDOMEN: Soft, nontender and nondistended. There is no lower extremity edema. SKIN: Without rash. There is no joint swelling. LABORATORY STUDIES: CBC reveals a white blood cell count of 3.7, hemoglobin 11.8, hematocrit 31.6 and platelets are 195. Chemistry panel yesterday reveals a sodium of 135, potassium 4.2, chloride 104, bicarbonate 21, BUN 17, creatinine 0.8, glucose is 127. Urinalysis was negative. Again, Lyme titers were positive. [place] screen was negative. No micro or imaging to review. ASSESSMENT AND PLAN: Lyme disease. He can be continued on Rocephin intravenously while in the hospital. Once he is able to tolerate p.o. medications and his nausea and vomiting have resolved, he can be transitioned to a course of oral antibiotics with doxycycline 100 mg twice daily to complete a 28-day course. Thank you for this consultation.
[2016-03-30] MEDS ORDERED: BISACODYL 10 MG SUPP PR STA (13:45)
[2016-03-30] MEDS ORDERED: CEFTRIAXONE SOD INJ 2,000 MG in DEXTROSE 5% 50ML 50 ML IV SCH (14:00)
[2016-03-30] MEDS ORDERED: HYD10 PO (14:17)
[2016-03-30] MEDS ORDERED: FLR1 PO (14:17)
[2016-03-30] MEDS ORDERED: TRAZ50TA35 PO (14:17)
[2016-03-30] MEDS ORDERED: DXY100 PO (14:17)
--- NOTE | 2016-03-30 15:03 | Discharge Instructions ---
Discharge Instructions Admission Reason for Admission: Hypothyroid (Sarah Yost PA-C) Discharge Discharge Diagnosis / Problem: Adrenal Insufficiency; Hypothyroidism; Lyme Disease (Sarah Yost PA-C) Discharge Goals Goal(s): Decrease discomfort, Improve function, Improve disease control, Learn about illness, Diagnostic testing, Therapeutic intervention, Prevent Disease Progression (Sarah Yost PA-C) Activity Recommendations Activity Limitations: resume your previous activity . (Sarah Yost PA-C) Instructions / Follow-Up Instructions / Follow-Up Likely adrenal Insufficiency: - Take Florinef (Fludrocortisone) 0.1 mg by mouth once daily - Take Hydrocortisone (Cortef) as directed; 1. 30 mg by mouth in the morning and 15 mg by mouth in the evening x2 days ( and 04/01)- BEGIN TONIGHT ON 03/31 TAKING 15 mg by mouth in the evening. 2. 25 mg by mouth in the morning and 10 mg by mouth in the evening x2 days ( and 04/03) 3. 20 mg by mouth in the morning and 10 mg by mouth in the evening x2 days ( and 04/05) 4. Then continue taking 15 mg by mouth in the morning and 5 mg by mouth in the evening - One of your final labs are still pending (ACTH level) for this diagnosis. You will need to follow-up with your PCP for these results. Lyme disease: - You will complete a 28 day course of treatment. You have been treated with IV antibiotics x3 days in the hospital. Please continue taking Doxycycline 100 mg by mouth twice per day until prescription is completed. It is VERY important you complete the entire course of antibiotics. Please eat with medication to avoid upset stomach. Hypothyroidism: - Take Synthroid (Levothyroxine) 25 mcg by mouth once daily Insomnia (difficulty sleeping): - Take Trazodone 25 mg by mouth at nighttime, ONLY NEEDED, for difficultly with sleeping. You have only been given a prescription of 7 days- you need to talk with your PCP if insomnia continues. Elevated iron levels: - It is important you follow-up with scheduled Hematology appointment for additional evaluation, care, and management. Nausea: - You may take Zofran 4 mg by mouth every 6 hours as needed for nausea. Constipation: - You may take Miralax daily. You can buy this medication over the counter. Please use only as directed on the bottle. - Another option would be to take Dulcolax. You can buy this medication over the counter as well. Please use only as directed on the box. Please follow-up with your PCP on April 01 at 9:50AM. Follow-up with Endocrinology on April 05 at 9:30AM. (Sarah Yost PA-C) Current Hospital Diet Patient's current hospital diet: Regular Diet (Sarah Yost PA-C) Discharge Diet Recommended Diet: Regular Diet (Sarah Yost PA-C) Procedures Procedures Performed: 1. Echocardiogram (Sarah Yost PA-C) Pending Studies Studies pending at discharge: yes List of pending studies: 1. ACTH level (Sarah Yost PA-C) Laboratory Results Test 03/22/16 16:56 03/27/16 12:10 03/27/16 12:20 03/27/16 12:46 Red Blood Cell Morphology Unremarkable Unremarkable Erythrocyte Sedimentation Rate 2 Total Bilirubin 0.7 0.9 Aspartate Amino Transferase (AST) 23 24 Alanine Aminotransferase (ALT) 25 29 Alkaline Phosphatase 70 78 Total Protein 7.3 7.6 Albumin 4.2 4.4 Globulin 3.1 Albumin/Globulin Ratio 1.4 Thyroid Stimulating Hormone (TSH) 8.910 H 9.910 H Neutrophils % (Manual) 41.5 Lymphocytes % (Manual) 22.1 Variant Lymphocytes % (manual) 25.7 Monocytes % (Manual) 8.0 Eosinophils % (Manual) 0.9 Basophils % (Manual) 0.9 Myelocytes % 0.9 Neutrophils # (Manual) 2.42 Total Absolute Neutrophils 2.42 Lymphocytes # (Manual) 1.29 Absolute Variant Lymphocytes 1.50 Total Absolute Lymphocytes 2.78 Monocytes # (Manual) 0.47 Eosinophils # (Manual) 0.05 Basophils # (Manual) 0.05 Myelocytes # 0.05 H Estimated Average Glucose 88 Hemoglobin A1c 4.7 Magnesium Level 2.2 Direct Bilirubin 0.3 H Thyroxine (T4) 7.5 Free Triiodothyronine 3.71 Random Cortisol 4.41 Lyme Disease IgG Antibody POS H Lyme Disease IgG Ab (Western Blot) POSITIVE A Lyme Disease IgG Ab 18 kDa Band REACTIVE A Lyme Disease IgG Ab 23 kDa Band REACTIVE A Lyme Disease IgG Ab 28 kDa Band NONREACTIVE Lyme Disease IgG Ab 30 kDa Band NONREACTIVE Lyme Disease IgG Ab 39 kDa Band REACTIVE A Lyme Disease IgG Ab 41 kDa Band REACTIVE A Lyme Disease IgG Ab 45 kDa Band REACTIVE A Lyme Disease IgG Ab 58 kDa Band REACTIVE A Lyme Disease IgG Ab 66 kDa Band REACTIVE A Lyme Disease IgG Ab 93 kDa Band REACTIVE A Lyme Disease IgM Antibody POSITIVE A Lyme Disease IgM Ab 23 kDa Band REACTIVE A Lyme Disease IgM Ab 39 kDa Band NONREACTIVE Lyme Disease IgM Ab 41 kDa Band REACTIVE A [place] Virus Capsid Ag IgG Ab <0.91 E-B Virus Capsid Ag IgM Ab Index <0.91 EBV Early Ag Ab (Restrict +Diffuse) <0.91 [place] Virus Nuclear Ag Ab <0.91 Monoscreen NEG POC Glucose 109 H Renin Activity Pending Aldosterone Pending Adrenocorticotropic Hormone Pending Test 03/27/16 17:15 03/27/16 22:30 03/28/16 06:42 03/28/16 08:35 Urine Color YELLOW Urine Appearance CLEAR Urine pH 6.5 Urine Specific [place] 1.007 Urine Protein NEG Urine Glucose (UA) NEG Urine Ketones TRACE H Urine Occult Blood NEG Urine Nitrite NEG Urine Bilirubin NEG Urine Urobilinogen NEG Urine Leukocyte Esterase NEG Urine Osmolality 292 L Urine Random Sodium 64 Osmolality 262 L Magnesium Level 2.1 Free Thyroxine 1.25 White Blood Count 4.84 Red Blood Count 4.48 L Hemoglobin 13.7 #L Hematocrit 35.8 L Mean Corpuscular Volume 79.9 L Mean Corpuscular Hemoglobin 30.6 Mean Corpuscular Hemoglobin Concent 38.3 H Platelet Count 235 Mean Platelet Volume 10.6 H Neutrophils (%) (Auto) 50.1 Lymphocytes (%) (Auto) 34.3 Monocytes (%) (Auto) 14.0 Eosinophils (%) (Auto) 1.0 Basophils (%) (Auto) 0.4 Neutrophils # (Auto) 2.42 Lymphocytes # (Auto) 1.66 Monocytes # (Auto) 0.68 H Eosinophils # (Auto) 0.05 Basophils # (Auto) 0.02 RDW Standard Deviation 33.6 L RDW Coefficient of Variation 11.5 Immature Granulocyte % (Auto) 0.2 Immature Granulocyte # (Auto) 0.01 Neutrophils % (Manual) 52.6 Lymphocytes % (Manual) 36.8 Monocytes % (Manual) 7.9 Eosinophils % (Manual) 1.8 Basophils % (Manual) 0.9 Neutrophils # (Manual) 2.55 Total Absolute Neutrophils 2.55 Lymphocytes # (Manual) 1.78 Total Absolute Lymphocytes 1.78 Monocytes # (Manual) 0.38 Eosinophils # (Manual) 0.09 Basophils # (Manual) 0.04 Sodium Level 128 L Potassium Level 4.5 # Chloride Level 96 L Carbon Dioxide Level 22 Anion Gap 10.0 Blood Urea Nitrogen 23 H Creatinine 0.98 Est Creatinine Clear Calc Drug Dose 113.6 Estimated GFR () 126.3 Estimated GFR (Non- 109.0 BUN/Creatinine Ratio 23.7 H Random Glucose 92 Calcium Level 8.1 L Follicle Stimulating Hormone 1.37 Luteinizing Hormone 5.74 Prolactin 18.28 Test 03/29/16 06:45 03/29/16 07:58 03/31/16 06:05 White Blood Count 3.75 L 7.31 Red Blood Count 3.87 L 3.93 L Hemoglobin 11.9 L 12.1 L Hematocrit 31.6 L 32.7 L Mean Corpuscular Volume 81.7 83.2 Mean Corpuscular Hemoglobin 30.7 30.8 Mean Corpuscular Hemoglobin Concent 37.7 H 37.0 H Platelet Count 185 215 Mean Platelet Volume 10.4 10.1 Neutrophils (%) (Auto) 79.2 74.8 Lymphocytes (%) (Auto) 17.9 17.0 Monocytes (%) (Auto) 2.9 7.8 Eosinophils (%) (Auto) 0.0 0.0 Basophils (%) (Auto) 0.0 0.0 Neutrophils # (Auto) 2.97 5.47 Lymphocytes # (Auto) 0.67 L 1.24 Monocytes # (Auto) 0.11 0.57 Eosinophils # (Auto) 0.00 0.00 Basophils # (Auto) 0.00 0.00 RDW Standard Deviation 34.3 L 35.3 L RDW Coefficient of Variation 11.6 11.5 Immature Granulocyte % (Auto) 0.0 0.4 Immature Granulocyte # (Auto) 0.00 0.03 H Sodium Level 135 #L 140 Potassium Level 4.2 3.9 Chloride Level 104 104 Carbon Dioxide Level 21 26 Anion Gap 10.0 10.0 Blood Urea Nitrogen 17 16 Creatinine 0.86 0.85 Est Creatinine Clear Calc Drug Dose 133.4 135.0 Estimated GFR () 142.7 143.4 Estimated GFR (Non- 123.1 123.7 BUN/Creatinine Ratio 19.3 19.4 Random Glucose 127 H 89 Calcium Level 8.0 L 8.3 L Iron Level 181 H 176 H Total Iron Binding Capacity 185 L 194 L Transferrin 140 L 142 L Transferrin % Saturation 92 H 89 H Ferritin 370.4 Total Testosterone 298.90 Cortisol Response to Stimulation Cortisol Baseline (Sarah Yost PA-C) School Instructions Additional Instructions: Return to classes on Monday (04/04). You may return to school sooner if feeling well. (Sarah Yost PA-C) Medical Emergencies . Who to Call and When: Medical Emergencies: If at any time you feel your situation is an emergency, please call 911 immediately. . (Sarah Yost PA-C) Non-Emergent Contact Non-Emergency issues call your: Primary Care Provider Call Non-Emergent contact if: you have a fever, temperature is above 100.5, your pain is not controlled, your pain is worsening, your pain is unusual for you, your pain is concerning you, you have any medication questions . (Sarah Yost PA-C) . "Provider Documentation" section prepared by Sarah Yost. (Sarah Yost PA-C) Attending Attestation: I agree with these discharge instructions as outlined by REUBEN Yost. Tra Marcos MD (Tra Marcos MD) VTE Core Measure Inpt VTE Proph given/why not?: THolly Stockings, SCD's (Sarah Yost PA-C)
[2016-03-30 15:27] VITALS: BP 100/52; PULSE 83; TEMP 36.6; O2SAT 97
--- NOTE | 2016-03-30 15:30 | Discharge Summary ---
Discharge Summary Admission Date: Mar 27, 2016 at 14:08 Discharge Date: Mar 31, 2016 Discharge Disposition: Home Principal Diagnosis: Adrenal insufficiency Problems/Secondary Diagnoses: 1. Hypothyroidism 2. Elevated iron studies 3. Lyme Disease 4. Insomnia 5. RBBB Procedures: ECHOCARDIOGRAM: Interpretation Summary * Name: KARYN DAMIAN Study Date: 03/30/2016 08:45 AM BP: 91/51 mmHg * Patient Location: .[facility]\S\N382\S\2 HR: 91 * : 1995 (M/d/yyyy) Gender: Male Height: 75 in * Age: 21 yrs Ethnicity: [place] Weight: 154 lb * Ordering Physician: Tra Marcos * Referring Physician: Self, Referred * Performed By: Nimisha Conway RCS * * Reason For Study: Lyme's carditis * BSA: 2.0 m2 * -- Conclusions -- * 1. Normal LV size. Normal LV wall thickness. * 2. Normal LV systolic function. LVEF 60-65%. No regional wall motion abnormalities. * 3. Normal RV size and function. * 4. Unable to rule out bicuspid aortic valve. Otherwise no significant valvular pathology. * 5. No prior study for comparison. Procedure Details * A complete two-dimensional transthoracic echocardiogram was performed (2D, M- mode, Doppler and color flow Doppler). Left Ventricle * The left ventricle is grossly normal size. * There is normal left ventricular wall thickness. * Ejection Fraction = 60-65%. Right Ventricle * The right ventricle is grossly normal size. * There is normal right ventricular wall thickness. * The right ventricular systolic function is normal as assessed by tricuspid annular plane systolic excursion (TAPSE) (normal >1.5 cm). Atria * The left atrial size is normal. * Right atrial size is normal. Mitral Valve * The mitral valve is grossly normal. * Mitral stenosis is absent. * Significant mitral regurgitation is absent. Tricuspid Valve * The tricuspid valve is not well visualized, but is grossly normal. * There is no tricuspid stenosis. * No tricuspid regurgitation. Aortic Valve * The aortic valve opens well. * Can not rule out bicuspid aortic valve * No hemodynamically significant valvular aortic stenosis. * There is no significant aortic regurgitation. Pulmonic Valve * The pulmonary valve is inadequately visualized, but the Doppler data is adequate for interpretation. * Pulmonic stenosis is absent. * There is no significant pulmonary regurgitation. Great Vessels * The aortic root and proximal ascending aorta are normal sized. Pericardium/Pleural * There is no pericardial effusion. Great Vessels * Normal inferior vena cava diameter and respiratory variation suggests normal central venous pressure. MMode 2D Measurements and Calculations IVSd 0.83 cm IVSs 0.95 cm LVIDd 4.8 cm LVIDs 2.9 cm LVPWd 0.99 cm LVPWs 1.7 cm IVS/LVPW 0.84 FS 39.5 % EDV(Teich) 106.7 ml ESV(Teich) 32.0 ml EF(Teich) 70.0 % EDV(cubed) 109.5 ml ESV(cubed) 24.2 ml EF(cubed) 77.9 % % IVS thick 14.0 % % LVPW thick 70.7 % LV mass(C)d 149.4 grams LV mass(C)dI 76.1 grams/m\S\2 LV mass(C)s 121.2 grams LV mass(C)sI 61.7 grams/m\S\2 CO(Teich) 6.2 l/min CI(Teich) 3.2 l/min/m\S\2 SV(Teich) 74.7 ml SI(Teich) 38.0 ml/m\S\2 CO(cubed) 7.1 l/min CI(cubed) 3.6 l/min/m\S\2 SV(cubed) 85.3 ml SI(cubed) 43.4 ml/m\S\2 Ao root diam 2.8 cm Ao root area 6.1 cm\S\2 ACS 2.0 cm LA dimension 1.8 cm LA/Ao 0.63 LVAd ap4 32.9 cm\S\2 LVLd ap4 8.8 cm EDV(MOD-sp4) 103.0 ml LVAs ap4 16.3 cm\S\2 LVLs ap4 6.9 cm ESV(MOD-sp4) 33.0 ml EF(MOD-sp4) 68.0 % LVAd ap2 34.8 cm\S\2 LVLd ap2 9.6 cm EDV(MOD-sp2) 106.0 ml LVAs ap2 14.8 cm\S\2 LVLs ap2 6.8 cm ESV(MOD-sp2) 27.0 ml EF(MOD-sp2) 74.5 % CO(MOD-sp4) 5.8 l/min CI(MOD-sp4) 3.0 l/min/m\S\2 SV(MOD-sp4) 70.0 ml SI(MOD-sp4) 35.6 ml/m\S\2 CO(MOD-sp2) 6.6 l/min CI(MOD-sp2) 3.3 l/min/m\S\2 SV(MOD-sp2) 79.0 ml SI(MOD-sp2) 40.2 ml/m\S\2 Doppler Measurements and Calculations MV E max timo 113.0 cm/sec MV A max timo 101.5 cm/sec MV E/A 1.1 MV dec time 0.14 sec Ao V2 max 128.8 cm/sec Ao max PG 6.6 mmHg Ao max PG (full) 1.6 mmHg LV V1 max PG 5.0 mmHg LV V1 max 111.9 cm/sec PA V2 max 119.4 cm/sec PA max PG 5.7 mmHg Created: Initialized: 03/30/16; 1706 <Electronically signed by Andrea Engle MD> Signed: 03/30/16 2333 Andrea Engle MD The status of this report is Signed. Draft = Not yet reviewed or approved by Heater Operator Helper. Signed = Reviewed and approved by Heater Operator Helper. Consultations: Infectious Disease- Dr. Yee (Sarah Yost, PA-C) Problems/Secondary Diagnoses: adrenal shock - resolved. hyponatremia - resolved. hyperkalemia - resolved. RBBB is INCOMPLETE RBBB. (Tra Marcos MD) Medication Reconciliation New Medications: Doxycycline Hyclate (Doxycycline Hyclate) 100 Mg Cap 100 MG PO BID for 25 Days, #50 TABS Hydrocortisone (Cortef) 10 Mg Tab 10 MG PO UD for 30 Days, #30 TABS 30 mg QAM, 15 mg QPM x2 days,then 25 mg QAM, 10 mg PO QPM x2 days,then 20 mg QAM, 10 mg QPM x2 days, then 15 mg QAM, 5 mg QPM Ondansetron Hcl (Zofran) 4 Mg Tab 4 MG PO Q6 for Nausea for 30 Days, #120 TAB Trazodone Hcl (Trazodone) 50 Mg Tab 25 MG PO HS for Anxiety/Insomnia for 7 Days, #7 TAB Fludrocortisone Acetate (Fludrocortisone Acetate) 0.1 Mg Tab 0.1 MG PO QAM for 30 Days, #30 TAB Continued Medications: Levothyroxine Sodium (Synthroid) 25 Mcg Tab 25 MCG PO DAILY, TAB Referrals At Discharge Follow up Referrals: Technical Sales Engineer Referral - Within 1-2 Weeks @ [facility] with Mike Vang M.D. Family Practice Referral - Within 1 Week with Adriana Alvarado M.D. Discharge Exam Review of Systems: Constitutional: No chills, No fatigue, No fever, No sweats, No weakness Respiratory: No cough, No hemoptysis, No shortness of breath Cardiovascular: No chest pain, No edema, No palpitations Abdomen: + constipation, No diarrhea, No nausea, No pain, No vomiting Musculoskeletal: No calf pain, No joint pain, No muscle pain, No swelling Genitourinary - Male: No dysuria, No hematuria Neurologic: No numbness/tingling, No paralysis, No weakness Psychiatric: No anxiety, No depression symptoms Hematologic / Lymphatic: No abnormal bleeding/bruising Integumentary: No itch, No new/changing skin lesions, No rash Physical Exam: General Appearance: no apparent distress, + thin Eyes: normal inspection, PERRL ENT: hearing grossly normal Neck: supple Respiratory/Chest: lungs clear, normal breath sounds, no respiratory distress, no accessory muscle use Cardiovascular: regular rate, rhythm, no edema, normal peripheral pulses Abdomen / GI: normal bowel sounds, non tender, soft Extremities: no calf tenderness, no pedal edema Neurologic/Psychiatric: alert, normal mood/affect, oriented x 3 Skin: normal color, warm/dry, no rash (Sarah Yost, PA-C) Hospital Course Patient is a pleasant 21 y/o male, with no significant PMHX, who presented to the ED because of nausea/vomiting. Per patient, symptoms have been ongoing for roughly 1 week now. Over the last 24 hours, symptoms have worsened. He is unable to keep any foods/liquids down. He was seen by his PCP last week and started on Synthroid 25 mcg for hypothyroidism. He just started the medication on 03/27 but states he vomited after each time he took it. Patient also complains of fatigue, lightheadedness/dizziness, muscle aches, and constipation. Patient does report recent exposure to ticks- no rashes. Patient was recently seen in the ED on 12/23 for a sore throat- he was treated with Prednisone 50 mg x5 days and Azithromycin. He admits to a cold ~1 week ago, but symptoms have improved. Patient denies any fever, chills, sweats, vision changes , CP, palpitations, edema, SOB, wheezing, cough, abdominal pain, diarrhea, urinary symptoms, melena, numbness/tingling, muscle/joint pain, anxiety/ depression, active bleeding, or new skin discoloration/changes. -?Adrenal insufficiency: - Admit tele --Transferred to med/surg on 03/29 - IV 100 mg Solu Cortef in ED on 03/27 - ha1c of 4.7 - Checked FSH, LH, and prolactin levels, WNL - Start Dexamethasone 6 mg IV q6 hrs and Fludrocortisone 0.1 mg PO daily on 03/28 -- Wean from Dexamethasone, decreased to q12 hrs on 03/29 - Cortrosyn stimulation test - Pending ACTH level - Check AM testosterone level- patient is balding and difficulty with erections - level of 298.90. Recommend endocrinology f/u outpatient. At discharge, patient was discharged with Florinef 0.1 mg PO daily and Hydrocortisone abner. He was instructed to follow-up with Endocrinology. ACTH level pending at discharge, follow-up with PCP. Low MCV: - Iron panel- iron 176, TIBC 194, Transferrin % sat 89, transferrin 142. ? Hemochromatosis- will need f/u outpatient At discharge, patient was scheduled for a hematology appointment for additional evaluation, management, treatment, and referral if indicated. Hypothyroidism, TSH of 9.910: - free T4, thyroxine, and free T3 all WNL - IV Synthroid 25 mcg due to vomiting -- Convert to oral 25 mcg on 03/30 Patient was instructed to continue Synthroid 25 mcg PO daily. He will need repeated labs outpatient to ensure adequate dose. Hyponatremia w/ sodium of 118 on 03/27, likely secondary to adrenal insufficiency : - Treat with IV NSS @ 125 ml/hr -- IV NSS bolus x1 on 03/28 -- Reduce to 75 ml/hr on 03/29 - Urine sodium and urine osmolality- low - Follow PRP Resolved at discharge Possible Lyme Disease with recent tick exposure, +IgG Ab: - +western blot/bands - IV Rocephin 2 gm (did not start Doxycycline PO as patient is not tolerating oral intake at admission) (first dose on 03/27) - Consult ID, appreciated recommendations - Check ECHO- RBBB block noted on EKGs. ?lyme carditis Patient was discharged with Doxycycline 100 mg PO BID x 25 days to complete a 28 day treatment (IV Rocephin x3 days in the hospital) Nausea/Vomiting, resolved: - IVF as above - Check mag level- 2.1 - IV Zofran PRN - Follow PRP and CBC Resolved at discharge. Tolerating oral intake well. Given prescription for Zofran PRN for nausea. Insomnia: - Trazodone 25-50 mg PO HS PRN Discharged with 7 days prescription. Instructed to follow-up with his PCP if insomnia continues. GI Prophylaxis: - Maalox PRN - IV Zofran PRN - Colace and/or Milk of Mag PRN DVT prophylaxis: - Early ambulation - MYLENE and SCDs Code Status: - LEVEL I, FULL Dispo: - Discharge to home Total Time Spent: Greater than 30 minutes This includes examination of the patient, discharge planning, medication reconciliation, and communication with other providers. (Sarah Yost ., PA-C) Attending Attestation: Pt seen/examined, chart reviewed, and care plan d/w REUBEN Yost on the day of discharge. I agree with her discharge summary as outlined. 21yo male with recently diagnosed hypothyroidism who presented with severe dizziness, nausea, and emesis. Was found to be in shock with initial systolic BP of about 70. He was also severely hyponatremic and mildly hyperkalemic. Cortisol level in the ER was 4 at presentation. He was admitted with a working diagnosis of adrenal insufficiency causing adrenal shock. After several days of copious hydration and stress-dose IV steroids (decadron) his hyponatremic dehydration, hyperkalemia, and hypotension all resolved. The patient underwent formal cosyntropin stimulation test and this was very abnormal consistent with adrenal insufficiency. 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 ACTH level was sent & is pending; this will be the final test to distinguish primary from central causes. He will discharge to home on hydrocortisone taper and florinef. Other issues addressed - 1. low MCV on CBC - iron studies were checked and his iron saturation was 90%. This result was seen on two separate days. Ferritin, however, was normal. He will be referred to hematology to ensure we are not dealing with hemochromatosis. 2. lymes' disease - initial Lyme's screen was positive. Western Blot later returned positive as well. ID was consulted and a 28-day course of antibiotics was recommended (doxycycline). His incomplete RBBB was felt to not be due to Lyme's but rather a normal variant. He has scheduled follow-up with his PCP, endocrinology, and hematology. Discharge exam- gen - NAD, thin HEENT - balding, MMM heart - RRR, s1, s2, no murmur lungs - CTA b/l abd - soft, NT, BS+ ext - no edema skin - tanned appearance; hyperpigmentation of his nipples/areolas Tra Marcos MD (Tra Marcos MD) Discharge Instructions Please refer to the electronic Patient Visit Report (Discharge Instructions) for additional information. (Sarah Yost ., PA-C) Follow-Up Please follow-up with your PCP within 5-7 days. Please follow up with Endocrinology within the next 1-2 weeks. Please follow-up/keep all of your subspecialty appointments. (Sarah Yost, PA-C) [facility] with Dr. Cooper on April 14 at 10:00 am. (Tra Marcos MD) Additional Copies To Adriana Alvarado M.D.; Chad Cooper MD; Jaz Mcgee M.D.
--- NOTE | 2016-03-30 17:06 | ECHOCARDIOGRAM REPORT ---
*NOTICE TO RECEIVING REPUBLICAN AGENCY This information is strictly Confidential and protected under [place] law. [place] law prohibits you from making any further disclosure of this information unless further disclosure is expressly permitted by the written consent of the person to whom it pertains or is authorized by law. A general authorization for the release of medical or other information is not sufficient for this purpose. Hospital accepts no responsibility if the information is made available to any other person, INCLUDING THE PATIENT. Interpretation Summary * Name: KARYN DAMIAN Study Date: 03/30/2016 08:45 AM BP: 91/51 mmHg * Patient Location: [facility]\S\N382\S\2 HR: 91 * : 1995 (M/d/yyyy) Gender: Male Height: 75 in * Age: 21 yrs Ethnicity: CA Weight: 154 lb * Ordering Physician: Tra Marcos * Referring Physician: Self, Referred * Performed By: Nimisha Conway RCS * * Reason For Study: Lyme's carditis * BSA: 2.0 m2 * -- Conclusions -- * 1. Normal LV size. Normal LV wall thickness. * 2. Normal LV systolic function. LVEF 60-65%. No regional wall motion abnormalities. * 3. Normal RV size and function. * 4. Unable to rule out bicuspid aortic valve. Otherwise no significant valvular pathology. * 5. No prior study for comparison. Procedure Details * A complete two-dimensional transthoracic echocardiogram was performed (2D, M-mode, Doppler and color flow Doppler). Left Ventricle * The left ventricle is grossly normal size. * There is normal left ventricular wall thickness. * Ejection Fraction = 60-65%. Right Ventricle * The right ventricle is grossly normal size. * There is normal right ventricular wall thickness. * The right ventricular systolic function is normal as assessed by tricuspid annular plane systolic excursion (TAPSE) (normal >1.5 cm). Atria * The left atrial size is normal. * Right atrial size is normal. Mitral Valve * The mitral valve is grossly normal. * Mitral stenosis is absent. * Significant mitral regurgitation is absent. Tricuspid Valve * The tricuspid valve is not well visualized, but is grossly normal. * There is no tricuspid stenosis. * No tricuspid regurgitation. Aortic Valve * The aortic valve opens well. * Can not rule out bicuspid aortic valve * No hemodynamically significant valvular aortic stenosis. * There is no significant aortic regurgitation. Pulmonic Valve * The pulmonary valve is inadequately visualized, but the Doppler data is adequate for interpretation. * Pulmonic stenosis is absent. * There is no significant pulmonary regurgitation. Great Vessels * The aortic root and proximal ascending aorta are normal sized. Pericardium/Pleural * There is no pericardial effusion. Great Vessels * Normal inferior vena cava diameter and respiratory variation suggests normal central venous pressure. MMode 2D Measurements and Calculations IVSd 0.83 cm IVSs 0.95 cm LVIDd 4.8 cm LVIDs 2.9 cm LVPWd 0.99 cm LVPWs 1.7 cm IVS/LVPW 0.84 FS 39.5 % EDV(Teich) 106.7 ml ESV(Teich) 32.0 ml EF(Teich) 70.0 % EDV(cubed) 109.5 ml ESV(cubed) 24.2 ml EF(cubed) 77.9 % % IVS thick 14.0 % % LVPW thick 70.7 % LV mass(C)d 149.4 grams LV mass(C)dI 76.1 grams/m\S\2 LV mass(C)s 121.2 grams LV mass(C)sI 61.7 grams/m\S\2 CO(Teich) 6.2 l/min CI(Teich) 3.2 l/min/m\S\2 SV(Teich) 74.7 ml SI(Teich) 38.0 ml/m\S\2 CO(cubed) 7.1 l/min CI(cubed) 3.6 l/min/m\S\2 SV(cubed) 85.3 ml SI(cubed) 43.4 ml/m\S\2 Ao root diam 2.8 cm Ao root area 6.1 cm\S\2 ACS 2.0 cm LA dimension 1.8 cm LA/Ao 0.63 LVAd ap4 32.9 cm\S\2 LVLd ap4 8.8 cm EDV(MOD-sp4) 103.0 ml LVAs ap4 16.3 cm\S\2 LVLs ap4 6.9 cm ESV(MOD-sp4) 33.0 ml EF(MOD-sp4) 68.0 % LVAd ap2 34.8 cm\S\2 LVLd ap2 9.6 cm EDV(MOD-sp2) 106.0 ml LVAs ap2 14.8 cm\S\2 LVLs ap2 6.8 cm ESV(MOD-sp2) 27.0 ml EF(MOD-sp2) 74.5 % CO(MOD-sp4) 5.8 l/min CI(MOD-sp4) 3.0 l/min/m\S\2 SV(MOD-sp4) 70.0 ml SI(MOD-sp4) 35.6 ml/m\S\2 CO(MOD-sp2) 6.6 l/min CI(MOD-sp2) 3.3 l/min/m\S\2 SV(MOD-sp2) 79.0 ml SI(MOD-sp2) 40.2 ml/m\S\2 Doppler Measurements and Calculations MV E max timo 113.0 cm/sec MV A max timo 101.5 cm/sec MV E/A 1.1 MV dec time 0.14 sec Ao V2 max 128.8 cm/sec Ao max PG 6.6 mmHg Ao max PG (full) 1.6 mmHg LV V1 max PG 5.0 mmHg LV V1 max 111.9 cm/sec PA V2 max 119.4 cm/sec PA max PG 5.7 mmHg
[2016-03-30] MEDS ORDERED: HYDROCORTISONE 10 MG TAB PO ONE (18:30)
[2016-03-30] MEDS: TRAZODONE HCL 50 MG TAB PO SCH (21:10)
[2016-03-30 23:10] VITALS: BP 108/57; PULSE 87; TEMP 36.7; O2SAT 98
[2016-03-31] MEDS: LEVOTHYROXINE 25 MCG TAB PO SCH (05:46)
--- NOTE | 2016-03-31 05:58 | Progress Note ---
Subjective Date of Service: late entry for visit Mar 30, 2016. Subjective Pt evaluation today including: conversation w/ patient, physical exam, chart review, lab review, review of studies (echo), conversation w/ loss control consultant ( endocrinology, GI, heme/onc (all informally)), review of inpatient medication list Pain: denies PO Intake: normal Voiding: no voiding problems feels good denies dizziness, lightheadedness main complaint is that of constipation - a chronic issue for him at home eating well Problem List Medical Problems: (1) Hyponatremia Status: Acute (2) Hypotension Status: Acute (3) Pharyngitis, acute Status: Acute Review of Systems Constitutional: No fever Respiratory: No shortness of breath Cardiac: No chest pain, No orthopnea Abdomen: + constipation, No pain Objective Vital Signs Date Time Temp Pulse Resp B/P Pulse Ox O2 Delivery O2 Flow Rate FiO2 03/30/16 23:45 Room Air 03/30/16 23:10 36.7 87 16 108/57 98 Room Air 03/30/16 15:47 Room Air 03/30/16 15:27 100/52 03/30/16 15:27 36.6 83 18 97 Room Air 03/30/16 07:20 36.7 91 16 91/51 97 Room Air Physical Exam General Appearance: no apparent distress ENT: pharynx normal Neck: no JVD Respiratory/Chest: lungs clear, no respiratory distress, no accessory muscle use Cardiovascular: regular rate, rhythm, no gallop, no murmur Abdomen: normal bowel sounds, non tender, soft, no organomegaly Extremities: no pedal edema Neurologic/Psychiatric: alert, oriented x 3 Skin: + pertinent finding (hyperpigmented nipples/areolas; skin tone is tanned) Laboratory Results Last 24 Hours Test 03/31/16 04:44 Transferrin % Saturation % Assessment and Plan 21yo male with: 1. adrenal insufficiency with resulting shock - latter resolved. Cosyntropin stim test grossly abnormal. Labs, clinical picture, exam findings, etc most c/w primary adrenal insufficiency / [place]'s disease. Stop IV decadron. Place on hydrocortisone BID (AM and afternoon). Cont daily florinef. Can stop fluids today. Awaiting ACTH level; if high would confirm [place]'s. 2. severe dehydration 2nd to #1 - resolved. Stop fluids. 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 Spoke with endocrinology by phone who reported that testosterone level can be low-normal during times of physical stress/illness. This will need to be repeated in future. 4. hypothyroidism - on synthroid. His Free T4 was preserved making central causes highly unlikely. 5. insomnia - trazodone 6. hyponatremia - hypotonic hypovolemic - resolved. 7. acute kidney injury - resolved 8. incomplete RBBB - repeat EKG unchanged and stable. Spoke with cardiology. Unlikely to be from Lyme's. This is typically a normal variant. ECHO is NORMAL with no structural heart disease (bicuspid aortic valve could not be ruled out but I do not hear any abnormalities of the AV on exam). 9. lyme's disease - screen was + and western blot +. ID consult appreciated. Plan - 28 days of doxycycline. Can stop rocephin. 10. low MCV on cbc - checked iron studies showing very high Iron level and VERY high iron saturation. Discussed this with GI and heme/onc. Will repeat levels in AM. 11. constipation - dulcolax suppos x 1. anticipate d/c first thing in AM Continued [facility] stay due to: multiple IV medications needed Discharge planning: home
[2016-03-31 06:29] LABS: COMPLETE YES; HEMATOCRIT 32.7 % (42-52); IG% 0.4 %; LYMPH ABS # 1.24 K/uL (1.2-3.4); MEAN CELL VOLUME 83.2 fL (80-100); MEAN CORPUSCULAR HEMOGLOBIN 30.8 pg (25-34); MEAN PLATELET VOLUME 10.1 fL (7.4-10.4); MONO % 7.8 %; NEUT % 74.8 %; PLATELET COUNT 215 K/uL (130-400); RED BLOOD COUNT 3.93 M/uL (4.7-6.1); WHITE BLOOD COUNT 7.31 K/uL (4.8-10.8)
[2016-03-31 07:00] LABS: BUN/CREATININE RATIO 19.4 (10-20); CALCIUM 8.3 mg/dl (8.5-10.1); CREATININE 0.85 mg/dl (0.60-1.40); POTASSIUM 3.9 mmol/L (3.5-5.1)
[2016-03-31 07:25] VITALS: BP 107/57; PULSE 82; TEMP 36.6; O2SAT 99
[2016-03-31] MEDS ORDERED: HYDROCORTISONE 10 MG TAB PO ONE (09:00)
[2016-03-31] MEDS ORDERED: DOXYCYCLINE HYCLATE 100 MG CAP PO SCH (09:00)
[2016-03-31] MEDS ORDERED: ONDA4TAB65 PO (09:28)
[2016-03-31] MEDS: FLUDROCORTISONE ACETATE 0.1 MG TAB PO SCH (09:55)
[2016-03-31 12:05] VITALS: BP 107/57; PULSE 82; TEMP 36.6; O2SAT 99
== END 2016-03-31 13:05 | disposition home or self-care (01) | DRG 644 ==
LOC: ENRESERVDT → ENRESERVTM → C.EDB 11:51 → C.2T 14:08 → C.MSN 03-29 19:53
PROVIDERS: ADMIT Hospitalist; ATTEND Internal Medicine
DX: E27.1 Primary adrenocortical insufficiency (principal); N17.9 Acute kidney failure, unspecified; E87.1 Hypo-osmolality and hyponatremia; A69.20 Lyme disease, unspecified; E03.9 Hypothyroidism, unspecified; I95.9 Hypotension, unspecified; E27.2 Addisonian crisis; G47.00 Insomnia, unspecified; K59.00 Constipation, unspecified; I45.10 Unspecified right bundle-branch block; R11.2 Nausea with vomiting, unspecified; E86.0 Dehydration; L65.9 Nonscarring hair loss, unspecified; N52.9 Male erectile dysfunction, unspecified; D64.9 Anemia, unspecified; M79.1 Myalgia; R79.0 Abnormal level of blood mineral; Z79.899 Other long term (current) drug therapy

== ENCOUNTER → 2016-04-14 | Outpatient (CLI) | payer BC ==
[~2016-04-14] MED LIST changes: -TRAZ50TA35 PO
[2016-04-14 13:10] LABS: ALT/SGPT 52 U/L (12-78); AST/SGOT 19 U/L (15-37); BLOOD UREA NITROGEN 10 mg/dl (7-18); BUN/CREATININE RATIO 12.8 (10-20); CALCIUM 8.8 mg/dl (8.5-10.1); CARBON DIOXIDE 31 mmol/L (21-32); CHLORIDE 107 mmol/L (98-107); GLUCOSE 86 mg/dl (70-99); POTASSIUM 3.8 mmol/L (3.5-5.1); SODIUM 144 mmol/L (136-145)
[2016-04-14 13:21] LABS: ALB/GLOB RATIO 1.6 (0.9-2); ALKALINE PHOSPHATASE 38 U/L (45-117)
[2016-04-14 21:22] LABS: PHOSPHORUS 2.6 mg/dl (2.5-4.9)
[2016-04-20 15:17] LABS: ISLET CELL AB NEGATIVE (NEGATIVE); MICROSOMAL AB 50 IU/ML (<9)
== END | disposition home or self-care (01) ==
LOC: C.LAB1850 11:14
PROVIDERS: ATTEND Internal Medicine Endocrinology, Diabetes & Metabolism
DX: E27.40 Unspecified adrenocortical insufficiency (principal); E83.51 Hypocalcemia; E03.9 Hypothyroidism, unspecified